=== PATIENT | female | born 1960 | race Caucasian/White ===

== ENCOUNTER 2016-12-22 05:38 | Inpatient (IN) | payer BC ==
[2016-12-22] VITALS (14 sets, daily range): BP systolic 100–134; BP diastolic 47–85
[~2016-12-22] VITALS: Ht 182.9 cm; Wt 128.8 kg
[~2016-12-22 05:38] MED LIST: LOSARTAN POTASS50 MG ORAL; METFORMIN HCL500 M1 ORAL; OMEPRAZOLE40 M1 ORAL
--- NOTE | 2016-12-22 07:00 | Anethesia Preoperative Eval ---
Anesthesia Pre-op PMH/ROS General Date of Evaluation: Dec 22, 2016 Anesthesiologist: Jamal ASA Score: ASA 2 Mallampati Score Class I : Soft palate, uvula, fauces, pillars visible Class II: Soft palate, uvula, fauces visible Class III: Soft palate, base of uvula visible Class IV: Only hard plate visible Mallampati Classification: Class II Surgeon: Awais Diagnosis: Left knee osteoarthritis Surgical Procedure: Left total knee replacement Anesthesia History: none Family History: no anesthesia problems Allergies: Coded Allergies: COCONUT (Verified Allergy, Mild, 12/21/16) RASH RHUBARB (Verified Allergy, Mild, 12/21/16) RASH STRAWBERRY (Verified Allergy, Mild, 12/21/16) RASH Uncoded Allergies: TREE NUTS (Allergy, Severe, 12/21/16) THROAT SWELLS UP EGGPLANT (Allergy, Mild, 12/21/16) RASH Medications: see eMAR Past Medical History Cardiovascular: Reports: HTN, Denies: CAD, [place], valve dz, arrhythmia, other Pulmonary: Denies: asthma, COPD, MEY, other Gastrointestinal/Genitourinary: Reports: GERD, Denies: CRI, ESRD, other Neurologic/Psychiatric: Denies: dementia, CVA, depression/anxiety, TIA, other Endocrine: Reports: DM, Denies: hypothyroidism, steroids, other HEENT: Denies: cataract (L), cataract (R), glaucoma, PASCUA YAQUI (L), PASCUA YAQUI (R), other Hematology/Immune: Denies: anemia, DVT, bleeding disorder, other Musculoskeletal/Integumentary: Reports: OA, other - chronic low back pain, Denies: RA, DJD, DDD, edema Other: obesity PSxH Narrative: fibroid embolization Anesthesia Pre-op Phys. Exam Physician Exam Last Vital Signs Date Time Temp Pulse Resp B/P (MAP) Pulse Ox O2 Delivery O2 Flow Rate FiO2 12/22/16 06:23 96.0 64 18 129/62 96 Room Air Constitutional: NAD Cardiovascular: RRR Respiratory: other - diminished breath sounds bilateerally Airway Exam Mallampati Score: Class II MO: limited Neck: obese ROM: limited Anesthesia Pre-op A/P Labs see chart Studies Pre-op Studies: EKG - sr Risk Assessment & Plan Assessment: ASA II Plan: SAB, and GA Status Change Before Surgery: No Pre-Antibiotics Drug: Ancef 2g Given Within 1 Hr of Incision: Yes Time Given: 08:00 ENRIQUE KELLY M.D. Dec 22, 2016 07:00
[2016-12-22] MEDS ORDERED: LR 1000ml 1,000 ML IVLG SCH (07:01)
[2016-12-22] MEDS ORDERED: DiphenhydrAMINE 50mg/ml Inj IVP PRN (07:15)
[2016-12-22] MEDS ORDERED: fentaNYL 100 mcg/2 mL IV PRN (07:15)
[2016-12-22] MEDS ORDERED: Midazolam 2mg/2ml Inj IVP PRN (07:15)
[2016-12-22] MEDS ORDERED: Metoclopramide 10mg/2ml Inj IVP PRN (07:15)
[2016-12-22] MEDS ORDERED: Hydromorphone 0.5mg/0.5ml inj IVP PRN (07:15)
[2016-12-22] MEDS ORDERED: LORazepam Inj 2mg/ml 1ml IV PRN (07:15)
[2016-12-22] MEDS ORDERED: Bacitracin 50000 Units Vial ONE (07:24)
[2016-12-22] MEDS ORDERED: NeoSporin Gu Irrig 1ml Amp IRRIG ONE (07:24)
[2016-12-22] MEDS ORDERED: Duramorph PF 5mg/10ml amp ONE (07:24)
[2016-12-22] MEDS ORDERED: D5 1/2NS w/KCl 20mEq 1,000 ML IV SCH (07:46)
--- NOTE | 2016-12-22 07:46 | Pre-Procedure Note/Attestation ---
Pre-Procedure Note/Attestation Complete Prior to Procedure Planned Procedure: left Procedure Narrative: left knee replacement Indications for Procedure Pre-Operative Diagnosis: left knee oa Attestation I attest that I discussed the nature of the procedure; its benefits; risks and complications; and alternatives (and the risks and benefits of such alternatives ), prior to the procedure, with the patient (or the patient's legal loss prevention representative). I attest that, if there was a reasonable possibility of needing a blood transfusion, the patient (or the patient's legal loss prevention representative) was given the [facility] standardized written summary, pursuant to the Rajiv Hood Blood Safety Act ([place] Health and Safety Code # 1645, as amended). I attest that I re-evaluated the patient just prior to the surgery and that there has been no change in the patient's H&P, except as documented below: HEMAL ABARCA Dec 22, 2016 07:46
[2016-12-22] MEDS ORDERED: Propofol 200mg/20ml IV ONE (08:00)
[2016-12-22] MEDS ORDERED: fentaNYL 100 mcg/2 mL IV ONE (08:00)
[2016-12-22] MEDS ORDERED: Lidocaine 1% MPF 10mg/ml 5ml ONE (08:00)
[2016-12-22] MEDS ORDERED: Metoclopramide 10mg/2ml Inj ONE (08:00)
[2016-12-22] MEDS ORDERED: Norco 7.5mg/325mg tab ORAL PRN (08:00)
[2016-12-22] MEDS ORDERED: LR 1000ml ONE (08:00)
[2016-12-22] MEDS ORDERED: HYDROmorphone 1mg/ml Carpuject SUBQ PRN ×2 (08:00→12:30)
[2016-12-22] MEDS ORDERED: Midazolam 2mg/2ml Inj ONE (08:00)
--- NOTE | 2016-12-22 08:14 | Immediate Post-Op Evaluation ---
Immediate Post-Op Evalulation Immediate Post-Op Evalulation Procedure: Left total knee arthroplasty Date of Evaluation: Dec 22, 2016 Time of Evaluation: 10:27 IV Fluids: 1.6L Blood Products: 0 Estimated Blood Loss: 150 Urinary Output: 300 Blood Pressure Systolic: 100 Blood Pressure Diastolic: 50 Pulse Rate: 75 Respiratory Rate: 16 O2 Sat by Pulse Oximetry: 95 Temperature (Fahrenheit): 97.2 Pain Score (1-10): 0 Nausea: No Vomiting: No Complications 0 Patient Status: awake, reacts, patent, none Hydration Status: adequate Drug: Ancef 2g Given Within 1 Hr of Incision: Yes Time Given: 08:00 ENRIQUE KELLY M.D. Dec 22, 2016 08:14
[2016-12-22] MEDS: Enoxaparin 40mg Inj SUBQ SCH (09:00)
[2016-12-22] MEDS ORDERED: Bacitracin Oint 15gm Tube TOPIC ONE (10:05)
--- NOTE | 2016-12-22 11:12 | Diagnostic Imaging Report ---
Indication: Pain Technique: 3 views of the left knee Comparison: None Findings:There is marked degenerative narrowing of the medial joint compartment. There are bilateral osteophytes. There is also narrowing of the patellofemoral joint compartment. No acute fractures. No dislocations Impression:Degenerative changes, as described No acute bony trauma
[2016-12-22 11:29] LABS: BASOPHILS % (AUTO) 0.6 % (0.0-2.0); LYMPHOCYTES % (AUTO) 15.1 % (20.0-45.0); MEAN CORPUSCULAR HGB CONC 33.2 G/DL (32.0-36.0); MEAN CORPUSCULAR VOLUME 96 FL (80-99); MEAN PLATELET VOLUME 7.5 FL (6.5-10.1); MONOCYTES % (AUTO) 1.7 % (1.0-10.0); NEUTROPHILS % (AUTO) 81.5 % (45.0-75.0); PLATELET COUNT 219 K/UL (150-450); RED BLOOD COUNT 4.08 M/UL (4.20-5.40); RED CELL DISTRIBUTION WIDTH 11.2 % (11.6-14.8); WHITE BLOOD COUNT 8.9 K/UL (4.8-10.8)
--- NOTE | 2016-12-22 12:03 | Diagnostic Imaging Report ---
Indications: Postoperative Technique: Two views of the left knee Comparison:None Findings: Two postoperative views of the left knee demonstrate total knee arthroplasty, good anatomic alignment of the prosthesis. . There is postsurgical soft tissue air. Overlying skin zandra. Impression: Postoperative left knee, no unusual features.
[2016-12-22] MEDS ORDERED: oxyCODONE 5mg IR tab ORAL PRN ×2 (12:45)
[2016-12-22] MEDS ORDERED: LORazepam 0.5mg tab ORAL PRN (13:45)
[2016-12-22] MEDS ORDERED: Milk of Magnesia 30ml Ud ORAL PRN (13:45)
[2016-12-22] MEDS: ceFAZolin sod 1 GM in D5W 55 ML IV SCH (15:46)
[2016-12-22] MEDS: 1/2NS w/KCl 20mEq 1000ml 1,000 ML IV SCH (15:46)
[2016-12-22] MEDS: HYDROmorphone 1mg/ml Carpuject SUBQ PRN ×2 (16:32→21:02)
[2016-12-22] MEDS: NovoLOG Insulin Flexpen SUBQ SCH ×2 (17:00→21:08)
[2016-12-22] MEDS: Docusate 100mg/10ml Liq NG SCH (17:35)
--- NOTE | 2016-12-22 20:46 | Cardiology Progress Note ---
Assessment/Plan Assessment/Plan [id number] dm htn obesity s/p tkr abn cxr diabetic diet and med dvt ppx ambualte when allowed will need fu on her cxr abn possible as out pt with her pmd Objective Last 24 Hour Vital Signs Date Time Temp Pulse Resp B/P (MAP) Pulse Ox O2 Delivery O2 Flow Rate FiO2 12/22/16 17:02 98.1 12/22/16 16:00 97.7 80 19 134/59 99 Nasal Cannula 3.0 12/22/16 13:30 98.1 83 18 112/74 99 Nasal Cannula 3.0 12/22/16 13:00 98.5 92 18 127/85 99 Nasal Cannula 3.0 12/22/16 12:30 98.3 84 19 130/74 96 Nasal Cannula 3.0 12/22/16 12:00 98.5 66 19 123/68 98 Nasal Cannula 3.0 12/22/16 11:30 98.6 68 20 119/61 95 Nasal Cannula 3.0 12/22/16 11:14 98.6 65 20 123/62 95 Nasal Cannula 3.0 12/22/16 11:05 71 20 115/56 95 Nasal Cannula 3.0 12/22/16 10:45 72 20 123/47 95 Nasal Cannula 3.0 12/22/16 10:32 72 20 111/48 95 Nasal Cannula 3.0 12/22/16 10:27 74 20 101/48 95 Simple Mask 5.0 12/22/16 10:25 75 16 95 12/22/16 10:22 97.2 74 20 100/50 95 Simple Mask 5.0 12/22/16 06:23 96.0 64 18 129/62 96 Room Air Intake and Output 12/22/16 12/23/16 19:00 07:00 Intake Total 3932.5 ml Output Total 3475 ml 800 ml Balance 457.5 ml -800 ml Intake Oral 1740 ml IV Total 2192.5 ml Output Urine Total 2975 ml 800 ml Drainage Total 350 ml Estimated Blood Loss 150 ml # Voids 1 Laboratory Tests Test 12/22/16 11:00 White Blood Count 8.9 K/UL (4.8-10.8) Red Blood Count 4.08 M/UL (4.20-5.40) L Hemoglobin 13.0 G/DL (12.0-16.0) Hematocrit 39.2 % (37.0-47.0) Mean Corpuscular Volume 96 FL (80-99) Mean Corpuscular Hemoglobin 32.0 PG (27.0-31.0) H Mean Corpuscular Hemoglobin Concent 33.2 G/DL (32.0-36.0) Red Cell Distribution Width 11.2 % (11.6-14.8) L Platelet Count 219 K/UL (150-450) Mean Platelet Volume 7.5 FL (6.5-10.1) Neutrophils (%) (Auto) 81.5 % (45.0-75.0) H Lymphocytes (%) (Auto) 15.1 % (20.0-45.0) L Monocytes (%) (Auto) 1.7 % (1.0-10.0) Eosinophils (%) (Auto) 1.0 % (0.0-3.0) Basophils (%) (Auto) 0.6 % (0.0-2.0) Prothrombin Time 10.0 SEC (9.30-11.50) Prothromb Time International Ratio 1.0 (0.9-1.1) SAMIR TONY Dec 22, 2016 20:46
--- NOTE | 2016-12-22 23:30 | Consultation ---
DATE OF CONSULTATION: 12/22/2016 CONSULTING PHYSICIAN: Valente Kramer M.D. REFERRING PHYSICIAN: Demetrius Ernandez M.D. REASON FOR CONSULTATION: Acute pain consult. HISTORY OF PRESENT ILLNESS: Dear Dr. Ernandez, Thank you kindly for consulting me to evaluate and render an opinion as to how to proceed in the management of the patient's acute postoperative left knee pain status post left total knee arthroplasty. The patient is a very pleasant, morbidly obese woman, who complained of significant discomfort after her left knee replacement surgery today. On request, I saw the patient for acute pain consultation. I saw the patient at bedside. I performed a detailed history and physical examination. I reviewed the medical record in detail. I discussed the case with yourself, Dr. Ernandez, along with the nurse, KURTIS Elam, along with the hospital pharmacist, Guerita. I spent over 75 minutes in consultation with an additional 30 minutes in medical record review. PAST MEDICAL HISTORY: 1. Acute postoperative left knee pain status post left total knee arthroplasty by Dr. Ernandez in December 2016. 2. Morbid obesity. 3. Diabetes. 4. Hypertension. 5. Gastroesophageal reflux disease. PAST SURGICAL HISTORY: In September 2016, right knee arthroscopy. MEDICATIONS AT HOME: Metformin, Prilosec, and losartan. ALLERGIES: Multiple food allergies. No known drug allergies. SOCIAL HISTORY: The patient lives at home with children, who will be able to assist with activities of daily living when the patient is discharged. The patient denies tobacco or marijuana usage. She does drink alcohol socially. FAMILY HISTORY: Noncontributory. REVIEW OF SYSTEMS: Per attending physician. PHYSICAL EXAMINATION: VITAL SIGNS: Age 55, height 182 cm, weight 129 kg, and body mass index 39. NEUROLOGIC: Alert and oriented x3. Moving all extremities x4. Moving all toes x10. Significant pain with flexion and extension of the left knee. Dressing appears clean and dry with Hemovac drain holding suction. HEENT: Nasal canal oxygen in place. Extraocular muscles intact. Pupils are equal, round, and accommodative. CHEST: Barrel chested. Bibasilar crackles. postop atelectasis. HEART: Regular rate and rhythm. Positive S4. Normal S1 and S2. No S3 appreciated. ABDOMEN: Positive obesity. Positive pannus. No rebound. No guarding. Veliz catheter in place. GENITOURINARY: Deferred. BREASTS: Deferred. DIAGNOSTIC TESTING: Shows a 12-lead EKG with left axis deviation, normal sinus rhythm, ventricular rate 81. Preoperative chest x-ray shows no acute cardiopulmonary disease on 12/09/2016. LABORATORY DATA: Laboratory studies from 12/14/2016 shows glucose 154, BUN 11, creatinine 0.6, sodium 142, potassium 4.3, chloride 100, bicarbonate 26, and calcium 10. Total protein 7.6. Albumin 4.6. AST 32, ALT 50, and alkaline phosphatase 84. Total bilirubin 0.8. test negative. INR 0.9. Urinalysis, 3+ leukocyte esterase, glucose negative. White count 7, hematocrit 42, and platelets 226. IMPRESSION: 1. Acute postoperative left knee pain status post left total knee arthroplasty by Dr. Ernandez in December 2016. 2. Morbid obesity. 3. Diabetes. 4. Hypertension. 5. Gastroesophageal reflux disease. TREATMENT RECOMMENDATIONS: I have devised the following analgesic plan to help with the patient's pain control. The patient used hydrocodone after her September 2015 right knee arthroscopy surgery. She did not believe that the [place] had much analgesic effect. She did not have any adverse side effects. I therefore will trial her on oxycodone instant release. I have ordered 5 mg q.3 hours p.r.n. for mild pain and 10 mg orally every three hours for moderate pain. The patient cannot recall her experience with narcotics such as morphine or Dilaudid. I therefore selected a starting dose of Dilaudid 0.5 mg subcutaneously every 3 hours p.r.n. for severe pain. I added p.r.n. low dose of Ativan 0.5 mg in case of anxiety or insomnia. I added Fioricet tablets 1 tablet orally every 8 hours in case of any headache complaints. I will restart the patient's blood pressure medicine tomorrow morning with a hold parameter in case her systolic blood pressure is less than 130 mmHg. I have added p.r.n. dose of Catapres 0.1 mg orally every 8 hours p.r.n. for high blood pressure. Because the patient is diabetic, I placed her on a low-dose sliding scale insulin with a diabetic diet and intravenous fluids without any dextrose. Restart her metformin tomorrow morning with protocol Accu-Cheks to test her blood sugar. I will empirically place the patient on Protonix 40 mg nightly for GI ulcer prophylaxis. She does probably use Prilosec for GERD. I have also added p.r.n. dose of Mylanta 30 mL q.6 hours p.r.n. for any GERD symptom exacerbation. I have ordered Zofran 4 mg intravenous every four hours for her nausea. I have ordered Benadryl 20 mg orally q.6 h. in case of itching complaints. I will place her on Colace as a stool softener and add p.r.n. dose of milk of magnesia, as well as Dulcolax suppository as a rescue laxative. Dr. Ernandez has ordered Lovenox to start tomorrow for DVT prophylaxis. This is an obese woman, who is at significant risk for deep venous thrombosis and pulmonary embolism complication due to the nature of her surgery and her obesity. I have ordered incentive spirometer to encourage good pulmonary toilet. Valente Kramer M.D. DR: NIC JOB#: [id number] CC:
[2016-12-23] VITALS: BP 127/68
[2016-12-23] MEDS: HYDROmorphone 1mg/ml Carpuject SUBQ PRN ×5 (00:04→19:01)
[2016-12-23] MEDS: ceFAZolin sod 1 GM in D5W 55 ML IV SCH (00:04)
[2016-12-23] MEDS: 1/2NS w/KCl 20mEq 1000ml 1,000 ML IV SCH ×2 (03:57→17:18)
[2016-12-23 04:00] VITALS: BP 123/72
--- NOTE | 2016-12-23 06:16 | Consultation ---
DATE OF CONSULTATION: 12/22/2016 CARDIOLOGY CONSULTATION CONSULTING PHYSICIAN: Tylor Cervantes M.D. REFERRING PHYSICIAN: Demetrius Ernandez M.D. REASON FOR EVALUATION: Postoperative medical care. HISTORY OF PRESENT ILLNESS: This is a middle-aged female, who has a history of an accident several years ago and related to her knee has had several meniscal repair surgeries and finally underwent total knee replacement by Dr. Schmitt today. I am asked to see her in medical consultation. The patient does not have any chest pain or shortness of breath. There is no PND, no orthopnea. No palpitations and no dizziness on standing position. PAST MEDICAL HISTORY: Positive for diabetes and high blood pressure. She has been on diabetic medication for approximately one year. She denies all the other medical questions on questioning. ALLERGIES: She has no known drug allergies. SOCIAL HISTORY: She does not smoke. Socially, drinks alcoholic beverages. Denies any drug use. She is an contract accountant. REVIEW OF SYSTEMS: GASTROINTESTINAL: She did not have any nausea or vomiting. bowel movements. GENITOURINARY: Negative. PULMONARY: She thought she choked on one of the pills that she had today. NEUROLOGICAL: Numbness and tingling sensation in her right fingers. PHYSICAL EXAMINATION: GENERAL: Shows to be a middle-aged female, in no respiratory distress. She is overweight. NECK: Supple. No jugular venous distention. No abdominojugular reflux noted. LUNGS: Clear to auscultation and percussion. CARDIAC: S1 is normal. S2 is normal. Regular rate and rhythm. No heaves, thrills, or gallops noted. ABDOMEN: Soft, obese. Positive bowel sounds. EXTREMITIES: There is no edema. Pneumatic stockings in place, and she has a drain in place. LABORATORY AND DIAGNOSTIC DATA: Laboratory values not available postop. Preop EKG shows leftward axis, no significant ST or T-wave abnormalities on this EKG. Chest x-ray was done that shows fullness in the left hilum, which may be vascular, however, not excluded. Would suggest a CT scan with contrast for further assessment, was recommended this to be done with primary care physician as an outpatient. Her laboratories, her blood sugar was 154. Liver function tests are all normal. Her HCG was negative. INR was 0.9, PTT of 28. Urinalysis was fairly unremarkable, although she did have 25 to 50 WBCs. Her white count was 7, hemoglobin 14.4, and platelet count of 226,000, these are all preop laboratories that were done by the primary care physician before she was referred for surgery. ASSESSMENT: 1. Diabetes mellitus. 2. Hypertension history. 3. Obesity. 4. Status post total knee replacement. PLAN: Dr. Schmitt, the patient was seen in medical consultation. The patient is doing well. She will need to be on a diabetic diet. Her diabetic medication will be resumed. Her blood pressure medication will be resumed, withhold parameters. She would need to follow up with her primary care doctor in terms of her CT scan possibly in the future. She will have Accu-Cheks performed, insulin sliding scale. Deep venous thrombosis prophylaxis with the use of Lovenox has already been ordered by yourself. Ambulation as allowed by yourself. I will follow the patient with you. Tylor Cervantes M.D. DR: KEARA JOB#: [id number] CC:
[2016-12-23] MEDS: NovoLOG Insulin Flexpen SUBQ SCH ×4 (06:27→21:09)
[2016-12-23 07:04] LABS: PROTHROMBIN TIME 10.1 SEC (9.30-11.50)
[2016-12-23 07:11] LABS: BASOPHILS % (AUTO) 0.5 % (0.0-2.0); EOSINOPHILS % (AUTO) 0.4 % (0.0-3.0); LYMPHOCYTES % (AUTO) 21.1 % (20.0-45.0); MEAN CORPUSCULAR HEMOGLOBIN 33.6 PG (27.0-31.0); MEAN CORPUSCULAR HGB CONC 35.3 G/DL (32.0-36.0); MEAN CORPUSCULAR VOLUME 95 FL (80-99); MEAN PLATELET VOLUME 8.1 FL (6.5-10.1); MONOCYTES % (AUTO) 8.6 % (1.0-10.0); NEUTROPHILS % (AUTO) 69.4 % (45.0-75.0); PLATELET COUNT 210 K/UL (150-450); RED BLOOD COUNT 3.75 M/UL (4.20-5.40); RED CELL DISTRIBUTION WIDTH 10.9 % (11.6-14.8); WHITE BLOOD COUNT 11.5 K/UL (4.8-10.8)
[2016-12-23 08:00] VITALS: BP 125/75
[2016-12-23] MEDS ORDERED: HYDROmorphone 1mg/ml Carpuject SUBQ ONE (08:35)
[2016-12-23] MEDS: Docusate 100mg/10ml Liq NG SCH ×2 (08:37→17:16)
[2016-12-23] MEDS: Enoxaparin 40mg Inj SUBQ SCH (08:43)
[2016-12-23] MEDS ORDERED: oxyCODONE 5mg IR tab ORAL PRN (08:45)
[2016-12-23] MEDS ORDERED: Losartan 50mg tab ORAL SCH ×2 (09:00→21:00)
[2016-12-23] MEDS ORDERED: metFORMIN 500mg tab ORAL SCH (09:00)
--- NOTE | 2016-12-23 10:20 | 48 Hour Post Anesthesia Eval ---
Post Anesthesia Evaluation Procedure: Left total knee arthroplasty Date of Evaluation: Dec 23, 2016 Time of Evaluation: 10:18 Blood Pressure Systolic: 124 0: 62 Pulse Rate: 74 Respiratory Rate: 20 Temperature (Fahrenheit): 97.9 O2 Sat by Pulse Oximetry: 97 Airway: patent Nausea: No Vomiting: No Pain Intensity: 3 Hydration Status: adequate Cardiopulmonary Status: stable Mental Status/LOC: patient returned to baseline Follow-up Care/Observations: n/a Post-Anesthesia Complications: none Follow-up care needed: N/A CAROLE GONGORA M.D. Dec 23, 2016 10:20
[2016-12-23] MEDS: oxyCODONE 15mg IR tab ORAL PRN ×3 (11:42→21:04)
[2016-12-23 12:00] VITALS: BP 149/81
--- NOTE | 2016-12-23 15:01 | Progress Note ---
DATE: 12/23/2016 ACUTE PAIN MANAGEMENT PHYSICIAN PROGRESS NOTE MEDICATIONS: Medication administration record reviewed. Medications include Fioricet, Mylanta, Dulcolax, Catapres, Benadryl, Colace, Lovenox, Dilaudid, sliding-scale insulin, Ativan, Cozaar, milk of magnesia, Glucophage, Zofran, oxycodone, Protonix, Phenergan suppository. OBJECTIVE: VITAL SIGNS: Afebrile, pulse 70, respirations 18, blood pressure 123/72, and oxygen saturation 92% on room air. LABORATORY STUDIES: From this morning, December 23, 2016, white count 12, hematocrit 36, and platelets 210,000. INR 1.0. I saw the patient at the bedside. After discussion with the nurse, Marialuisa Dexter, I spoke with the surgeon, Dr. Ernandez, in detail. Overnight, the night nurse stated that the patient had been doing fairly well, receiving subcutaneous Dilaudid nearly every three hours. When I saw the patient this morning, the patient disagreed and said that she was in significant discomfort. She did ask for more pain medications without receipt of such. I increased her Dilaudid dosing from 0.5 to 1 mg subcutaneously. I will continue this q.2 hours dosing. I have asked the nurse to give a breakthrough catch-up dose now. I have also increased the oxycodone from 5 to 10 mg for mild to moderate pain respectively to 10 and 15 mg for mild or moderate pain respectively. The patient does not appear to be anxious. She is in good spirits. She understands this is a significant surgery and she is expected to be uncomfortable. I spoke with the physical therapist who will try to walk with the patient later today. The gearcase assembler has been contacted to help arrange for home Lovenox. Treatment along with CPM at home and any other necessity such as a 4-legged walker. I have asked the nurse to leave a bedside commode in the room in case the patient has difficulty moving around. The Veliz catheter remains in place. The knee drain remains in place as well. At this time, I will defer removal of these indwelling catheters to the surgeon. Dr. Crevantes evaluated the patient yesterday for her glucose and hypertensive issues. The nurse will start the patient on Lovenox this morning. The patient will observe to hopefully be able to self-inject Lovenox tomorrow. I will leave the prescription for 2 weeks of Lovenox for outpatient therapy. The patient denies any shortness of breath or chest pain. The patient has no nausea symptoms. I will advance her diet to a diabetic diet as tolerated. Valente Kramer M.D. DR: DANNY JOB#: [id number] CC:
[2016-12-23 16:00] VITALS: BP 142/77
--- NOTE | 2016-12-23 18:35 | Cardiology Progress Note ---
Assessment/Plan Assessment/Plan 1. Diabetes mellitus. 2. Hypertension history. 3. Obesity. 4. Status post total knee replacement. 5. hx of valley fever i have explained to the pt and she indicated understanding that she needs to fu with pmd to evaluate the abn noted on her cxr with ct adn other test bs 133-170 off her cozaar still will resume tomorrow and if not orthostatic will dc ivf hgb stable dvt ppx pain management ambulate Subjective Cardiovascular: Reports: lightheadedness - when got up firs titme to walk, Denies: chest pain Respiratory: Denies: shortness of breath Gastrointestinal/Abdominal: Denies: abdominal pain Genitourinary: Denies: burning Objective Last 24 Hour Vital Signs Date Time Temp Pulse Resp B/P (MAP) Pulse Ox O2 Delivery O2 Flow Rate FiO2 12/23/16 16:00 98.1 94 19 142/77 95 Room Air 12/23/16 14:24 97.5 12/23/16 12:00 97.5 85 19 149/81 95 Room Air 12/23/16 10:20 74 20 97 12/23/16 09:07 98.6 12/23/16 08:00 99.2 78 17 125/75 98 Room Air 12/23/16 07:22 98.6 12/23/16 04:00 98.6 70 18 123/72 93 Room Air 12/23/16 00:00 98.8 74 18 127/68 93 Room Air 12/22/16 20:00 98.2 84 18 130/76 93 Nasal Cannula 3.0 General Appearance: no apparent distress, alert Neck: no JVD Cardiovascular: normal rate, regular rhythm Respiratory/Chest: lungs clear, normal breath sounds Abdomen: normal bowel sounds, non tender, soft Extremities: no swelling, other - pnemaumoatkic stockin in palce right leg , left cpm machien dressign Intake and Output 12/23/16 12/24/16 19:00 07:00 Intake Total 1562.5 ml Output Total 2460 ml Balance -897.5 ml Intake Oral 700 ml IV Total 862.5 ml Output Urine Total 2350 ml Drainage Total 110 ml Laboratory Tests Test 12/23/16 04:45 White Blood Count 11.5 K/UL (4.8-10.8) H Red Blood Count 3.75 M/UL (4.20-5.40) L Hemoglobin 12.6 G/DL (12.0-16.0) Hematocrit 35.7 % (37.0-47.0) L Mean Corpuscular Volume 95 FL (80-99) Mean Corpuscular Hemoglobin 33.6 PG (27.0-31.0) H Mean Corpuscular Hemoglobin Concent 35.3 G/DL (32.0-36.0) Red Cell Distribution Width 10.9 % (11.6-14.8) L Platelet Count 210 K/UL (150-450) Mean Platelet Volume 8.1 FL (6.5-10.1) Neutrophils (%) (Auto) 69.4 % (45.0-75.0) Lymphocytes (%) (Auto) 21.1 % (20.0-45.0) Monocytes (%) (Auto) 8.6 % (1.0-10.0) Eosinophils (%) (Auto) 0.4 % (0.0-3.0) Basophils (%) (Auto) 0.5 % (0.0-2.0) Prothrombin Time 10.1 SEC (9.30-11.50) Prothromb Time International Ratio 1.0 (0.9-1.1) SAMIR TONY Dec 23, 2016 18:35
[2016-12-23 20:46] VITALS: BP 150/78
[2016-12-23] MEDS: metFORMIN 500mg tab ORAL SCH (21:03)
--- NOTE | 2016-12-23 21:51 | General Progress Note ---
Progress Note Progress Note doing well neurovasc intact ambulating VSS cont rx HEMAL ABARCA Dec 23, 2016 21:51
[2016-12-23] MEDS ORDERED: Ketorolac 30mg Inj IV ONE (23:00)
[2016-12-24] VITALS (7 sets, daily range): BP systolic 116–126; BP diastolic 57–80
[2016-12-24] MEDS: HYDROmorphone 1mg/ml Carpuject SUBQ PRN (06:17)
[2016-12-24] MEDS: 1/2NS w/KCl 20mEq 1000ml 1,000 ML IV SCH (06:17)
[2016-12-24] MEDS: NovoLOG Insulin Flexpen SUBQ SCH ×4 (06:25→21:00)
[2016-12-24 07:56] LABS: BASOPHILS % (AUTO) 0.8 % (0.0-2.0); EOSINOPHILS % (AUTO) 1.1 % (0.0-3.0); LYMPHOCYTES % (AUTO) 21.5 % (20.0-45.0); MEAN CORPUSCULAR HGB CONC 35.2 G/DL (32.0-36.0); MEAN CORPUSCULAR VOLUME 94 FL (80-99); MEAN PLATELET VOLUME 7.6 FL (6.5-10.1); MONOCYTES % (AUTO) 11.1 % (1.0-10.0); NEUTROPHILS % (AUTO) 65.5 % (45.0-75.0); PLATELET COUNT 180 K/UL (150-450); RED BLOOD COUNT 3.48 M/UL (4.20-5.40); RED CELL DISTRIBUTION WIDTH 10.7 % (11.6-14.8); WHITE BLOOD COUNT 9.6 K/UL (4.8-10.8)
[2016-12-24 08:10] LABS: PROTHROMBIN TIME 10.2 SEC (9.30-11.50)
[2016-12-24] MEDS: Docusate 100mg/10ml Liq NG SCH ×3 (08:32→17:42)
[2016-12-24] MEDS: Enoxaparin 40mg Inj SUBQ SCH (08:36)
[2016-12-24] MEDS: oxyCODONE 15mg IR tab ORAL PRN ×4 (09:00→21:15)
[2016-12-24] MEDS ORDERED: PERCOCET 10-321 EACH ORAL ×2 (10:51→10:53)
[2016-12-24] MEDS ORDERED: LOVENOX10 M4 SUBQ (10:54)
[2016-12-24] MEDS ORDERED: NS Irrig 1000ml ONE (17:59)
[2016-12-24] MEDS ORDERED: Tubing IV Secondary IV ONE (17:59)
--- NOTE | 2016-12-24 18:09 | Cardiology Progress Note ---
Assessment/Plan Assessment/Plan 1. Diabetes mellitus. 2. Hypertension history. 3. Obesity. 4. Status post total knee replacement. 5. hx of valley fever cristino i have explained to the pt and she indicated understanding that she needs to fu with pmd to evaluate the abn noted on her cxr with ct adn other test bs 127-178 hgb stable dvt ppx pain management ze keep holding bp med going home soon ambulate Subjective Cardiovascular: Denies: chest pain, lightheadedness, palpitations Respiratory: Denies: SOB with excertion Gastrointestinal/Abdominal: Denies: abdominal pain Genitourinary: Denies: burning Objective Last 24 Hour Vital Signs Date Time Temp Pulse Resp B/P (MAP) Pulse Ox O2 Delivery O2 Flow Rate FiO2 12/24/16 16:00 98.4 101 20 116/76 98 Room Air 12/24/16 12:00 98.0 89 20 118/67 98 Room Air 12/24/16 09:23 100 98 125 12/24/16 08:00 98.6 100 20 122/57 92 Room Air 12/24/16 06:47 99.0 12/24/16 04:55 99.0 92 19 123/65 93 Room Air 12/24/16 00:29 98.6 105 19 116/80 93 Room Air 12/23/16 23:04 100.2 12/23/16 21:03 150/78 12/23/16 20:46 100.2 111 20 150/78 94 Room Air General Appearance: no apparent distress, alert Neck: supple Cardiovascular: normal peripheral pulses, normal rate Respiratory/Chest: lungs clear Abdomen: normal bowel sounds, non tender, soft Extremities: no swelling Intake and Output 12/24/16 12/25/16 19:00 07:00 Intake Total 315 ml Output Total 1100 ml Balance -785 ml Intake Oral 240 ml IV Total 75 ml Output Urine Total 1100 ml # Voids 3 # Bowel Movements 1 Laboratory Tests Test 12/24/16 06:39 White Blood Count 9.6 K/UL (4.8-10.8) Red Blood Count 3.48 M/UL (4.20-5.40) L Hemoglobin 11.5 G/DL (12.0-16.0) L Hematocrit 32.5 % (37.0-47.0) L Mean Corpuscular Volume 94 FL (80-99) Mean Corpuscular Hemoglobin 33.0 PG (27.0-31.0) H Mean Corpuscular Hemoglobin Concent 35.2 G/DL (32.0-36.0) Red Cell Distribution Width 10.7 % (11.6-14.8) L Platelet Count 180 K/UL (150-450) Mean Platelet Volume 7.6 FL (6.5-10.1) Neutrophils (%) (Auto) 65.5 % (45.0-75.0) Lymphocytes (%) (Auto) 21.5 % (20.0-45.0) Monocytes (%) (Auto) 11.1 % (1.0-10.0) H Eosinophils (%) (Auto) 1.1 % (0.0-3.0) Basophils (%) (Auto) 0.8 % (0.0-2.0) Prothrombin Time 10.2 SEC (9.30-11.50) Prothromb Time International Ratio 1.0 (0.9-1.1) Microbiology Date/Time Source Procedure Growth Status 12/22/16 06:00 Nasal Nares MRSA Culture - Final NO METHICILLIN RESISTANT STAPH AUREUS... Complete SAMIR TONY Dec 24, 2016 18:09
[2016-12-24] MEDS ORDERED: LOSARTAN POTASS50 MG ORAL (18:30)
--- NOTE | 2016-12-24 19:46 | Progress Note ---
DATE: 12/24/2016 ACUTE PAIN MANAGEMENT PHYSICIAN PROGRESS NOTE MEDICATIONS: Medication administration record reviewed. Medications include Colace, Protonix, Cozaar, Glucophage, Lovenox, sliding-scale insulin, and p.r.n. medications include Benadryl, Zofran, Fioricet, Ativan, Catapres, Mylanta, Phenergan, milk of magnesia, Dulcolax, Dilaudid, and oxycodone. LABORATORY STUDIES: From this morning, 12/24/2016 shows normalized white count of 10, hematocrit 33, and platelets 180. INR is 1.0. OBJECTIVE: VITAL SIGNS: Afebrile, pulse 92, respirations 20, blood pressure 122/57, and oxygen saturation on room air. I saw the patient at the bedside after discussion with the overnight nurse RN, Robyn and today's day nurse RN, Marialuisa. The surgeon, Dr. Ernandez examined the patient yesterday evening and removed the left knee drain. Dr. Ernandez also dosed the patient with 30 mg of IV Toradol, which the patient stated had very good effect. Because the patient is already on Lovenox, I recommended the patient not to continue NSAIDs such as ibuprofen, unless Dr. Ernandez approves; although, there is a theoretical risk for increased bleeding of using NSAIDs especially when already on Lovenox. I left the prescription for 75 tablets of Percocet and the nurse, Marialuisa will contact the outpatient pharmacy at the hospital to see if they can fill the prescription. Otherwise the patient's children may travel-in from [facility] to drop-off the prescription at another outpatient pharmacy for easy dispensing. The patient has been ambulating. The Veliz catheter was removed this morning; however, the patient is yet to void urine. The patient has been compliant using her incentive spirometer. The patient is complaining of bland diet. I did explain the patient that she has been placed on a diabetic diet due to her diabetes. Dr. Cervantes has been following the patient's mildly elevated blood sugars. The patient continues on sequential compression pneumatic devices on the right lower extremity for DVT prophylaxis in addition to chemical anticoagulation using Lovenox 40 mg daily. We will see how the patient progresses. We will continue to have physical therapy training to determine the discharge planning. I will continue the current p.r.n. doses of Dilaudid and oxycodone as the dose seem to be effective without oversedation. Valente Kramer M.D. DR: RIGOBERTO JOB#: [id number] CC:
[2016-12-24] MEDS ORDERED: Ketorolac 30mg Inj IV ONE (21:00)
[2016-12-24] MEDS: metFORMIN 500mg tab ORAL SCH (21:14)
[2016-12-26] MEDS ORDERED: Losartan 50mg tab ORAL SCH (21:00)
--- NOTE | 2016-12-27 12:44 | Discharge Summary ---
Discharge Summary Hospital Course Date of Admission Dec 22, 2016 at 05:38 Date of Discharge Dec 24, 2016 at 23:36 Admitting Diagnosis left knee osteoarthritis Reason for Hospitalization: elective surgery HPI Kaley Wolff is a 55 year old female who was admitted on Dec 22, 2016 at 05: 38 for Lt Knee Osteoarthritis and elective surgery Consultations dr Kramer - pain specialist dr Cervantes - IN/demo event specialist Procedures s/p 12/22 Left total knee arthroplasty Hospital Course s/p surgery course of recovery uneventful initially IVF until tolerated diet neurovascular inatct pain management pain specialist followed PT eval and Rx, ambulated dressing C/D/I tolerated diet voided freely bowel regimen instituted DVT GI prophylaxis BS management with metformin and SS of insulin prn, diabetic diet BP monitoring, stable with ARB IM/cardio followed for medical management cleared for dc by all fup as outpatient with ortho surgeon as directed by surgeon FINAL DIAGNOSES: left knee osteoarthritis s/p left total knee arthroplasty DM HTN obesity Discharge Medications Continued Medications: Enoxaparin* (Lovenox*) 40 Mg/0.4 Ml Inj 40 MG SUBQ DAILY for 14 Days, #14 Losartan Potassium* (Losartan Potassium*) 50 Mg Tablet 50 MG ORAL DAILY, TAB Metformin Hcl* (Metformin Hcl*) 500 Mg Tablet 500 MG ORAL DA, TAB Omeprazole (Omeprazole) 40 Mg Capsule.dr 40 MG ORAL DAILY, CAP Oxycodone Hcl/Acetaminophen 10-325 Mg Tablet (Percocet 10-325 Mg Tablet*) 1 Each Tablet 1 TAB ORAL Q4H PRN for For Pain, #75 TAB Oxycodone Hcl/Acetaminophen 10-325 Mg Tablet (Percocet 10-325 Mg Tablet*) 1 Each Tablet 1.5 TAB ORAL Q4H PRN for For Pain, #75 TAB Discontinued Medications: Losartan Potassium* (Losartan Potassium*) 50 Mg Tablet 50 MG ORAL DAILY, TAB Discharge Condition Upon Discharge: stable Discharge Disposition Patient was discharged to Home () Discharge Diagnoses: Discharge Instructions Discharge Instructions Special Instructions I have been assigned to complete a D/C Summary on this account. I was not involved in the patient management Keren Dickey NP (Vanchtein) Dec 27, 2016 12:44
--- NOTE | 2017-01-03 07:45 | Operative Note - Dictated ---
DATE OF OPERATION: 12/22/2016 LOCATION: [facility]. PREOPERATIVE DIAGNOSIS: Left knee end-stage osteoarthritis. POSTOPERATIVE DIAGNOSIS: Left knee end-stage osteoarthritis. PROCEDURES: 1. Left knee replacement. 2. Modifier 22 secondary to difficulty due to size. SURGEON: Demetrius Ernandez M.D. SPORTS INFORMATION DIRECTOR: Unknown. FRIED CAKE MAKER: Christopher Hennessy M.D. PREOPERATIVE NOTE: The patient is a pleasant lady, who has been having issues with knee associated with pain. I explained to her the surgery and the risks being infection, bleeding, anesthetic risks, neurovascular damage, DVT, PE, and failure of the operation. The patient agreed and consents were obtained. OPERATIVE ROOM NOTE: Under the benefit of endotracheal intubation and general anesthetic, the patient's left knee was prepped and draped in an appropriate manner. A midline incision was made and incised through subcutaneous tissue. The patient was given a gram of Ancef. We went through medial retinaculum. Osteophytes were removed. I then proceeded to size the femur to be #10 with the Jessica Persona knee plate, making my anterior cuts, posterior cuts, anterior chamfer and posterior chamfer cuts. #10 was deemed to be perfect. I then proceeded to size the tibia and the ACL to be enough making my cut with a built-in 7-degree slope with respect to mechanical access. The synovium was removed. I then made my patellar cut. There was significant erosion in the patella, for which a 29 was sized . I then placed my trials in. The 14 mm poly was deemed to be perfect with a #10 femur and knee plate. After doing such, no was used. I irrigated the wound copiously. I then cemented in my left tibia, my 10 femur, my 14 mm poly, and my 29 mm patella with perfect alignment, perfect selection, perfect , full extension, full flexion, full stability with all ranges of motion. We closed the retinaculum with #1 Vicryl, subcutaneous tissue with 2-0 Vicryl, and skin with zandra. Modifier 22 secondary to size. The patient went to recovery room in stable condition. Bal Winston Ernandez DR: Lan JOB#: [id number] CC:
== END 2016-12-24 23:36 | disposition home or self-care (01) | DRG 470 ==
LOC: SDSOVERFLO 05:38 → 3E 11:22
PROC: 0SRD0J9 Replacement of Left Knee Joint with Synthetic Substitute, Cemented, Open Approach (ICD-10-PCS; principal; 2016-12-22 07:30)
DX: M17.12 Unilateral primary osteoarthritis, left knee (principal); I10 Essential (primary) hypertension; E11.9 Type 2 diabetes mellitus without complications; E66.9 Obesity, unspecified; K21.9 Gastro-esophageal reflux disease without esophagitis; G89.18 Other acute postprocedural pain; Z79.84 Long term (current) use of oral hypoglycemic drugs; Z91.018 Allergy to other foods
CPT/HCPCS: 36415; 82962; 85025; 85610; 86850; 86900; 86901; 86920; 87081; 94003; 94150; J1815; J2250; J2405; J2765

== ENCOUNTER 2018-12-20 10:30 | Inpatient (IN) | payer BC ==
[~2018-12-20] VITALS: Ht 177.8 cm; Wt 123.4 kg
[~2018-12-20 10:30] MED LIST changes: +LOVENOX10 M4 SUBQ; +PERCOCET 10-321 EACH ORAL
[2019-01-17] VITALS (14 sets, daily range): BP systolic 101–139; BP diastolic 53–74
[2019-01-17] MEDS ORDERED: Bacitracin 50000 Units Vial ONE ×2 (08:06→08:27)
[2019-01-17] MEDS ORDERED: LR 1000ml 1,000 ML IVLG SCH (08:23)
[2019-01-17 08:27] LABS: BASOPHILS % (AUTO) 1.2 % (0.0-2.0); EOSINOPHILS % (AUTO) 3.9 % (0.0-3.0); HEMATOCRIT 41.2 % (37.0-47.0); HEMOGLOBIN 14.9 G/DL (12.0-16.0); LYMPHOCYTES % (AUTO) 33.5 % (20.0-45.0); MEAN CORPUSCULAR VOLUME 87 FL (80-99); MONOCYTES % (AUTO) 7.7 % (1.0-10.0); NEUTROPHILS % (AUTO) 53.7 % (45.0-75.0); PLATELET COUNT 206 K/UL (150-450); RED BLOOD COUNT 4.73 M/UL (4.20-5.40); RED CELL DISTRIBUTION WIDTH 9.9 % (11.6-14.8); WHITE BLOOD COUNT 6.2 K/UL (4.8-10.8)
--- NOTE | 2019-01-17 08:29 | Anethesia Preoperative Eval ---
Anesthesia Pre-op PMH/ROS General Date of Evaluation: Jan 17, 2019 Time of Evaluation: 08:36 Anesthesiologist: Dalton ASA Score: ASA 3 Mallampati Score Class I : Soft palate, uvula, fauces, pillars visible Class II: Soft palate, uvula, fauces visible Class III: Soft palate, base of uvula visible Class IV: Only hard plate visible Mallampati Classification: Class II Surgeon: Asmita Diagnosis: R Knee Pain Surgical Procedure: R Knee Total Arthroplasty Family History: no anesthesia problems Allergies: Uncoded Allergies: ALL NUTS (Allergy, Severe, THROAT CLOSES UP, 01/16/19) Medications: see eMAR Patient NPO?: Yes NPO Date: Jan 16, 2019 NPO Time: 2355 Past Medical History Cardiovascular: Reports: HTN Gastrointestinal/Genitourinary: Reports: GERD Endocrine: Reports: DM HEENT: Reports: cataract (L), cataract (R) PSxH Narrative: L TKR, Embolize uterus Anesthesia Pre-op Phys. Exam Physician Exam Last Vital Signs Date Time Temp Pulse Resp B/P (MAP) Pulse Ox O2 Delivery O2 Flow Rate FiO2 01/17/19 08:16 Room Air 01/17/19 08:03 97.0 74 20 130/71 (90) 97 Constitutional: NAD Neurologic: CN 2-12 intact Cardiovascular: RRR Respiratory: CTA Gastrointestinal: S/NT/ND Airway Exam Mallampati Score: Class II MO: limited ROM: limited Teeth: missing, intact Anesthesia Pre-op A/P Labs Hematology Test 01/17/19 07:50 White Blood Count Pending Red Blood Count Pending Hemoglobin Pending Hematocrit Pending Mean Corpuscular Volume Pending Mean Corpuscular Hemoglobin Pending Mean Corpuscular Hemoglobin Concent Pending Red Cell Distribution Width Pending Platelet Count Pending Mean Platelet Volume Pending Neutrophils (%) (Auto) Pending Lymphocytes (%) (Auto) Pending Monocytes (%) (Auto) Pending Eosinophils (%) (Auto) Pending Basophils (%) (Auto) Pending Coagulation Test 01/17/19 07:50 Prothrombin Time Pending Prothromb Time International Ratio Pending Activated Partial Thromboplast Time Pending Chemistry Test 01/17/19 07:50 Sodium Level Pending Potassium Level Pending Chloride Level Pending Carbon Dioxide Level Pending Blood Urea Nitrogen Pending Creatinine Pending Estimat Glomerular Filtration Rate Pending Glucose Level Pending Calcium Level Pending Risk Assessment & Plan Assessment: ASA 3 Plan: GA, Spinal Status Change Before Surgery: No Pre-Antibiotics Dru grams Ancef IV Given Within 1 Hr of Incision: Yes Time Given: 09:21 Dirk Hoffman MD Jan 17, 2019 08:29
[2019-01-17] MEDS ORDERED: Hydromorphone 0.5mg/0.5ml inj IVP PRN ×2 (08:30→12:30)
[2019-01-17] MEDS ORDERED: Sterile Water Irrig 1000ml IRRIG ONE (08:30)
[2019-01-17] MEDS ORDERED: oxyCODONE HCL/Acetaminophen 5/325mg ORAL PRN (08:30)
[2019-01-17] MEDS ORDERED: Tranexamic Acid 100 ML IVPB ONE (08:30)
[2019-01-17] MEDS ORDERED: HYDROcodone/Acetamin 5/325 tab ORAL PRN (08:30)
[2019-01-17] MEDS ORDERED: Atropine Sulfate 0.4mg/ml inj IVP PRN (08:30)
[2019-01-17] MEDS ORDERED: HYDROcodone/Acetamin 7.5/325 tab ORAL PRN (08:30)
[2019-01-17] MEDS ORDERED: Ketorolac 30mg Inj IV PRN ×2 (08:30)
[2019-01-17] MEDS ORDERED: Midazolam 2mg/2ml Inj IVP PRN (08:30)
[2019-01-17] MEDS ORDERED: LORazepam Inj 2mg/ml 1ml IV PRN (08:30)
[2019-01-17] MEDS ORDERED: Meperidine 50mg/ml Inj(FOR RIGORS ONLY) IVP PRN (08:30)
[2019-01-17] MEDS ORDERED: DiphenhydrAMINE 50mg/ml Inj IVP PRN (08:30)
[2019-01-17] MEDS ORDERED: Metoclopramide 10mg/2ml Inj IVP PRN (08:30)
[2019-01-17] MEDS ORDERED: LR 1000ml ONE (08:30)
[2019-01-17] MEDS ORDERED: Labetalol 5mg/ml 20ml vial IV PRN (08:30)
[2019-01-17] MEDS ORDERED: NS Irrig 1000ml ONE (08:30)
[2019-01-17] MEDS ORDERED: Tranexamic Acid 1,000 MG in NS 65 ML IV ONE ×2 (08:30→08:45)
[2019-01-17] MEDS ORDERED: fentaNYL 100 mcg/2 mL IV PRN (08:30)
[2019-01-17 08:34] LABS: ANION GAP 9 mmol/L (5-15); BLOOD UREA NITROGEN 16 mg/dL (7-18); CALCIUM 9.5 MG/DL (8.5-10.1); CARBON DIOXIDE 26 MMOL/L (21-32); CHLORIDE 106 MMOL/L (98-107); CREATININE 0.6 MG/DL (0.55-1.30); SODIUM 141 MMOL/L (136-145)
[2019-01-17] MEDS ORDERED: Propofol 200mg/20ml IV ONE (08:38)
[2019-01-17] MEDS ORDERED: Lidocaine 1% MPF 10mg/ml 5ml ONE (08:38)
[2019-01-17] MEDS ORDERED: Sodium Chloride 10ml vial INJ ONE (08:38)
[2019-01-17] MEDS ORDERED: fentaNYL 100 mcg/2 mL IV ONE (08:39)
[2019-01-17] MEDS ORDERED: Dexamethasone 4mg/ml vial ONE (08:39)
[2019-01-17] MEDS ORDERED: EPINEPHrine 1mg/1ml Amp ONE ×2 (08:39→08:57)
[2019-01-17] MEDS ORDERED: Ropivacaine 5mg/ml Vial 30ml INJ ONE (08:39)
[2019-01-17 08:40] LABS: INR 0.9 (0.9-1.1)
[2019-01-17] MEDS ORDERED: Acetaminophen (Non formulary) 100 ML IV ONE (08:45)
[2019-01-17] MEDS ORDERED: cloNIDine 1000mcg/10ml inj ONE (08:57)
[2019-01-17] MEDS ORDERED: Bupivacaine 0.5% Inj 30 ml vial INJ ONE (08:58)
--- NOTE | 2019-01-17 08:59 | Pre-Procedure Note/Attestation ---
Pre-Procedure Note/Attestation Complete Prior to Procedure Planned Procedure: right Procedure Narrative: right knee replacement Indications for Procedure Pre-Operative Diagnosis: right knee arthritis Attestation I attest that I discussed the nature of the procedure; its benefits; risks and complications; and alternatives (and the risks and benefits of such alternatives ), prior to the procedure, with the patient (or the patient's legal personal service representative). I attest that, if there was a reasonable possibility of needing a blood transfusion, the patient (or the patient's legal personal service representative) was given the [facility] standardized written summary, pursuant to the Rajiv Shedd Blood Safety Act ([place] Health and Safety Code # 1645, as amended). I attest that I re-evaluated the patient just prior to the surgery and that there has been no change in the patient's H&P, except as documented below: Demetrius Ernandez MD Jan 17, 2019 08:59
[2019-01-17] MEDS ORDERED: Morphine Sulfate 4mg/ml Inj (IV USE ONLY) IVP PRN (09:00)
[2019-01-17] MEDS ORDERED: Morphine Sulfate 2mg/ml Inj(IV/IM USE ONLY) IVP PRN ×2 (09:00)
--- NOTE | 2019-01-17 09:20 | General Progress Note ---
Assessment/Plan Assessment/Plan: right knee arthroplasty right knee arthritis PLAN 1. incentive spirometry 2. Lovenox 3. PT evaluation and therapy 4. Hydration 5. Pain management 6. discharge once stable with outpatient follow up Subjective Allergies: Uncoded Allergies: ALL NUTS (Allergy, Severe, THROAT CLOSES UP, 01/16/19) Subjective asked to follow up post op Objective Last 24 Hour Vital Signs Date Time Temp Pulse Resp B/P (MAP) Pulse Ox O2 Delivery O2 Flow Rate FiO2 01/17/19 08:16 Room Air 01/17/19 08:03 97.0 74 20 130/71 (90) 97 Laboratory Tests 01/17/19 07:50: White Blood Count 6.2, Red Blood Count 4.73, Hemoglobin 14.9, Hematocrit 41.2, Mean Corpuscular Volume 87, Mean Corpuscular Hemoglobin 31.5H, Mean Corpuscular Hemoglobin Concent 36.2H, Red Cell Distribution Width 9.9L, Platelet Count 206, Mean Platelet Volume 6.4L, Neutrophils (%) (Auto) 53.7, Lymphocytes (%) (Auto) 33.5, Monocytes (%) (Auto) 7.7, Eosinophils (%) (Auto) 3.9H, Basophils (%) (Auto ) 1.2, Prothrombin Time 10.1, Prothromb Time International Ratio 0.9, Activated Partial Thromboplast Time 25, Sodium Level 141, Potassium Level 4.0, Chloride Level 106, Carbon Dioxide Level 26, Anion Gap 9, Blood Urea Nitrogen 16, Creatinine 0.6, Estimat Glomerular Filtration Rate > 60, Glucose Level 145H, Calcium Level 9.5 Height (Feet): 5 Height (Inches): 10.00 Weight (Pounds): 272 Objective WDWN NAD clear breath sounds bilaterally without rhonchi or wheeze [id number] without MRG NABS nontender no HSM no CCE nonfocal Elkin Erazo MD Jan 17, 2019 09:20
[2019-01-17] MEDS ORDERED: ePHEDrine 50mg/ml Inj ONE (09:29)
--- NOTE | 2019-01-17 09:56 | Immediate Post-Op Evaluation ---
Immediate Post-Op Evalulation Immediate Post-Op Evalulation Procedure: R Knee total Arthroplasty Date of Evaluation: Jan 17, 2019 Time of Evaluation: 11:34 IV Fluids: 1000 LR Blood Products: 0 Estimated Blood Loss: 50 Urinary Output: 100 Blood Pressure Systolic: 122 Blood Pressure Diastolic: 57 Pulse Rate: 86 Respiratory Rate: 16 O2 Sat by Pulse Oximetry: 98 Temperature (Fahrenheit): 97 Pain Score (1-10): 1 Nausea: No Vomiting: No Complications 0 Patient Status: awake, reacts, patent, none Hydration Status: adequate Dru Grams Ancef IV Given Within 1 Hr of Incision: Yes Time Given: 09:21 Dirk Hoffman MD Jan 17, 2019 09:56
[2019-01-17] MEDS ORDERED: oxyCODONE 5mg IR tab ORAL PRN (12:30)
[2019-01-17] MEDS ORDERED: Morphine Sulfate 2mg/ml Inj(IV/IM USE ONLY) IM PRN (12:30)
--- NOTE | 2019-01-17 12:50 | NUR ---
NURSE NOTES: REC'D FROM PACU SP RTKR. AWAKE ALERT. NO CO PAIN. RT KNEE DRESSING DRY AND INTACT. ICE PACK ON.IMMOBILIZER ON. WITH HEMOVAC IN PLACE DRAINING SEROUS DRAINAGE. WITH GOOD PEDAL PULSE. WITH SENSATION ON RT UPPER THIGH. VS TAKEN. IN NO DISTRESS.
--- NOTE | 2019-01-17 13:51 | NUR ---
NURSE NOTES: DR Sonia TONY CALLED RE :PT'S RECONCILIATION MEDS. LEFT MESSAGE TO RETURN CALL. Addendum: 01/17/19 at 1402 by ARNULFO OHARA RN DISREGARD ABOVE NOTATION, INCORRECT DOCTOR.
[2019-01-17] MEDS ORDERED: D5 1/2NS w/KCl 20mEq 1,000 ML IV SCH (14:00)
--- NOTE | 2019-01-17 14:02 | NUR ---
NURSE NOTES: DR MENDEZ CALLED RE PT'S RECONCILIATION MED LIST. LEFT MESSAGE TO RETURN CALL.
--- NOTE | 2019-01-17 15:04 | NUR ---
RADIOLOGY DEPT., RIGHT KNEE X-RAY COMPLETED.-P.DYE
[2019-01-17] MEDS: 1/2NS w/KCl 20mEq 1000ml 1,000 ML IV SCH (15:42)
[2019-01-17] MEDS: Enoxaparin 40mg Inj SUBQ SCH (15:46)
[2019-01-17] MEDS: HYDROcodone/Acetamin 10/325 tab ORAL PRN ×2 (15:49→18:19)
--- NOTE | 2019-01-17 15:50 | NUR ---
CASE MANAGEMENT: REVIEW 58Y/O FEMALE HERE FOR ELECTIVE SURGERY. SI: RIGHT KNEE OSTEOARTHRITIS, 97.0 74 20 130/70 97% RA IS: TO SURGERY RIGHT KNEE ARTHROPLASTY IV ANCEF Q8H LOVENOX SQ QD IVFS NS @75MLS/HR TO MED-SURG 3 EAST POST-OP
--- NOTE | 2019-01-17 15:57 | Diagnostic Imaging Report ---
Indications: Postoperative Technique: Two views of the right knee Comparison: None Findings: Two postoperative views of the right knee demonstrate total knee arthroplasty, good anatomic alignment of the prosthesis. . There is postsurgical soft tissue air. Overlying skin zandra. Impression: Postoperative right knee, no unusual features.
[2019-01-17] MEDS: ceFAZolin sod 1 GM in D5W 55 ML IV SCH (16:57)
--- NOTE | 2019-01-17 19:00 | NUR ---
NURSE NOTES: AWAKE. NO ACUTE DISTRESS.
--- NOTE | 2019-01-17 19:39 | NUR ---
HAND-OFF: Report given to Devora PALM RN.
[2019-01-17 20:14] LABS: HEMATOCRIT 41.3 % (37.0-47.0); HEMOGLOBIN 14.9 G/DL (12.0-16.0); MEAN CORPUSCULAR VOLUME 88 FL (80-99); PLATELET COUNT 217 K/UL (150-450); RED CELL DISTRIBUTION WIDTH 9.9 % (11.6-14.8); WHITE BLOOD COUNT 5.8 K/UL (4.8-10.8)
[2019-01-17] MEDS: Hydromorphone 0.5mg/0.5ml inj IVP PRN (22:47)
[2019-01-18] VITALS (7 sets, daily range): BP systolic 107–132; BP diastolic 60–70
[2019-01-18] MEDS: ceFAZolin sod 1 GM in D5W 55 ML IV SCH (01:13)
--- NOTE | 2019-01-18 01:57 | NUR ---
AWAKE,ALERT IN BED,PAIN LEVEL AT THIS TIME 1S10.RT.KNEE DRESSING DRY/INTACT.CIRCULATION ISGOOD.CONTINOUS ICEPACK ON.PAIN MEDICATION GIVEN NEEDED.DOZING ON AND OFF.WILL CONTINUE TO MONITOR
[2019-01-18] MEDS: Hydromorphone 0.5mg/0.5ml inj IVP PRN (03:27)
[2019-01-18] MEDS: 1/2NS w/KCl 20mEq 1000ml 1,000 ML IV SCH (04:57)
[2019-01-18 05:54] LABS: BASOPHILS % (AUTO) 0.3 % (0.0-2.0); EOSINOPHILS % (AUTO) 0.2 % (0.0-3.0); HEMATOCRIT 35.7 % (37.0-47.0); HEMOGLOBIN 12.4 G/DL (12.0-16.0); LYMPHOCYTES % (AUTO) 15.9 % (20.0-45.0); MEAN CORPUSCULAR VOLUME 91 FL (80-99); MONOCYTES % (AUTO) 6.8 % (1.0-10.0); NEUTROPHILS % (AUTO) 76.8 % (45.0-75.0); PLATELET COUNT 214 K/UL (150-450); RED BLOOD COUNT 3.92 M/UL (4.20-5.40); RED CELL DISTRIBUTION WIDTH 11.1 % (11.6-14.8)
[2019-01-18] MEDS ORDERED: oxyCODONE 5mg IR tab ORAL PRN (06:30)
[2019-01-18] MEDS: oxyCODONE 5mg IR tab ORAL PRN ×5 (06:32→23:08)
[2019-01-18] MEDS ORDERED: Milk of Magnesia 30ml Ud ORAL PRN (07:15)
--- NOTE | 2019-01-18 07:15 | NUR ---
HAND-OFF: Report given to KURTIS ARREDONDO. PATIENT IN STABLE CONDITION.
--- NOTE | 2019-01-18 07:29 | NUR ---
NURSE NOTES: AWAKE/ALERT. PAIN SCALE 5/10. RT KNEE DRESSING DRY AND INTACT ICE PACK ON. IMMOBILIZER ON. WITH GOOD PEDAL PULSE. IN NO ACUTE DISTRESS.
[2019-01-18] MEDS ORDERED: Morphine Sulfate 2mg/ml Inj(IV/IM USE ONLY) IM PRN ×2 (08:00→09:30)
[2019-01-18] MEDS: Losartan 50mg tab ORAL SCH (08:49)
--- NOTE | 2019-01-18 08:49 | General Progress Note ---
Assessment/Plan Assessment/Plan: right knee arthroplasty right knee arthritis diabetes PLAN 1. incentive spirometry 2. Lovenox 3. PT evaluation and therapy 4. diabetic management as is 5. Pain management 6. discharge once stable with outpatient follow up Subjective Allergies: Uncoded Allergies: ALL NUTS (Allergy, Severe, THROAT CLOSES UP, 01/16/19) Subjective care noted and reviewed no distress Objective Last 24 Hour Vital Signs Date Time Temp Pulse Resp B/P (MAP) Pulse Ox O2 Delivery O2 Flow Rate FiO2 01/18/19 08:00 98.4 76 15 130/63 (85) 93 01/18/19 03:40 99.0 78 17 129/68 (88) 92 01/18/19 00:00 97.9 72 16 119/60 (79) 93 01/17/19 20:00 98.3 78 17 135/71 (92) 92 01/17/19 18:49 98.1 01/17/19 17:00 97.1 76 21 110/65 (80) 97 01/17/19 15:56 98.1 90 21 101/61 (74) 96 01/17/19 14:00 97.2 86 18 110/60 (77) 97 01/17/19 12:50 97.3 75 22 117/58 97 Nasal Cannula 3 01/17/19 12:50 98.2 79 18 101/53 (69) 98 01/17/19 12:35 75 20 127/60 97 Nasal Cannula 3 01/17/19 12:20 78 19 119/57 97 Nasal Cannula 3 01/17/19 12:05 82 19 119/74 98 Nasal Cannula 3 01/17/19 11:50 81 20 117/70 99 Nasal Cannula 3 01/17/19 11:40 82 20 139/72 99 Simple Mask 6 01/17/19 11:30 79 20 126/68 97 Simple Mask 6 01/17/19 11:25 81 16 127/58 98 Simple Mask 6 01/17/19 11:23 97.0 82 15 122/57 98 Simple Mask 6 01/17/19 11:21 86 16 98 Intake and Output 01/17/19 01/18/19 19:00 07:00 Intake Total 1870.0 ml 2025 ml Output Total 1850 ml 1080 ml Balance 20.0 ml 945 ml Intake Oral 240 ml 1200 ml IV Total 1630.0 ml 825 ml Output Urine Total 1500 ml 1050 ml Drainage Total 300 ml 30 ml Estimated Blood Loss 50 ml # Voids 1 Laboratory Tests 01/18/19 05:04: White Blood Count 11.0#H, Red Blood Count 3.92L, Hemoglobin 12.4, Hematocrit 35.7L, Mean Corpuscular Volume 91, Mean Corpuscular Hemoglobin 31.6H, Mean Corpuscular Hemoglobin Concent 34.7, Red Cell Distribution Width 11.1L, Platelet Count 214, Mean Platelet Volume 6.6, Neutrophils (%) (Auto) 76.8H, Lymphocytes (%) (Auto) 15.9L, Monocytes (%) (Auto) 6.8, Eosinophils (%) (Auto) 0.2, Basophils (%) (Auto) 0.3, Prothrombin Time 10.4, Prothromb Time International Ratio 1.0 Height (Feet): 5 Height (Inches): 10.00 Weight (Pounds): 272 Objective WDWN NAD clear breath sounds bilaterally without rhonchi or wheeze [id number] without MRG NABS nontender no HSM no CCE nonfocal Elkin Erazo MD Jan 18, 2019 08:49
[2019-01-18] MEDS: Enoxaparin 40mg Inj SUBQ SCH (08:50)
--- NOTE | 2019-01-18 09:15 | Consultation ---
DATE OF CONSULTATION: 01/18/2019 CONSULTING PHYSICIAN: Valente Kramer M.D. REFERRING PHYSICIAN: Demetrius Ernandez M.D. REASON FOR CONSULTATION: Acute pain consult HISTORY OF PRESENT ILLNESS: Dear Dr. Demetrius Ernandez, Thank you kindly for consulting me to evaluate and render an opinion as to how to proceed in the management of the patient's acute postoperative right knee pain after right total knee arthroplasty. On your request, I saw the patient for acute pain consultation at the bedside. I discussed the case with yourself, Dr. Ernandez along with Internal Medicine, Dr. Erazo and the hospital pharmacist, Alexy, discussed the case with the orthopedic floor nurse, KURTIS Elam, along with the recovery room nurse, KURTIS Hamm. I spent over 75 minutes in consultation along with additional 30 minutes in medical record review. PAST MEDICAL HISTORY: 1. Acute postoperative right knee pain, status post right total knee arthroplasty by Dr. Demetrius Ernandez, January 2019. 2. Morbid obesity. Body mass index of 39. 3. Hypertension. 4. Diabetes. 5. GERD. PAST SURGICAL HISTORY: Left total knee replacement by Dr. Ernandez in 2017. ALLERGIES: No known drug allergies. Food allergies to all nuts, with anaphylactic shortness of breath. MEDICATIONS AT HOME: NSAIDs, losartan, metformin, and Prilosec. SOCIAL HISTORY: The patient lives at home with her two teenage children. She denies tobacco usage. She uses marijuana rarely. REVIEW OF SYSTEMS: Per Dr. Erazo. FAMILY HISTORY: Obesity, hypertension, and diabetes. PHYSICAL EXAMINATION: VITAL SIGNS: Age 58, height 5 feet 10 inches, weight 123 kg. Body mass index 39. Afebrile. Pulse 78, respirations 17, blood pressure 129/68, oxygen saturation 98% on room air. HEENT: Normocephalic and atraumatic. CHEST: Barrel chested. ABDOMEN: Massively obese. Positive bowel sounds. MUSCULOSKELETAL: Right knee with dry dressing. Significant pain with range of motion. Moving all extremities x4. Veliz catheter in place. BREASTS/GENITOURINARY: Deferred to Dr. Erazo. DIAGNOSTIC TESTING: Laboratory studies from this morning, postop day #1, 01/18/2019, white count 11, hematocrit 36, platelets 214,000. INR 1.0. IMPRESSION: 1. Acute postoperative right knee pain, status post right total knee arthroplasty by Dr. Demetrius Ernandez, January 2019. 2. Morbid obesity. Body mass index of 39. 3. Hypertension. 4. Diabetes. 5. GERD. TREATMENT RECOMMENDATIONS: After multiple discussions with the hospital nurses and pharmacy staff and discussion with the patient, I started the patient on a tiered regimen of analgesics. I trialed her on oxycodone 5 mg instant release. This dose was well tolerated and the patient believes she could tolerate higher dose. I doubled the dose to 10 mg, which has been more efficacious without any untoward side effects. I will continue the 5 mg orally every three hours pain for mild pain. I will continue the 10 mg orally every three hours p.r.n. for moderate pain. I will trial the patient both on IV Dilaudid as well as intramuscular morphine for tolerability. The patient states that the intramuscular morphine 4 mg dose was extremely effective and I will continue this dose every three hours p.r.n. for severe pain. I discontinued the Dilaudid to help simplify her analgesic plan. The patient does not appear to be anxious. I would avoid the class of benzodiazepines and concentrate on MU-opioid agonist agents for now, for primary analgesia. Dr. Ernandez has placed the patient on chemical anticoagulation with Lovenox 40 mg subcutaneously on this morbidly obese patient who is at significant risk for deep venous thrombosis and pulmonary embolism complications due to the nature of surgery. Dr. Erazo is managing the patient's hypertension and diabetes issues. For the patient's comfort, I have ordered Benadryl 25 mg every 6 hours in case of any itching complaints. I have ordered Zofran 4 mg intravenously every 4 hours p.r.n. for nausea and vomiting. The patient will be restarted on her Protonix for GI ulcer prophylaxis which she takes at home. I also ordered p.r.n. dose of Mylanta 30 mL q.6 hours in case of any GERD symptom exacerbation. I encouraged aggressive incentive spirometer usage to avoid pulmonary atelectasis postoperatively. We will forward a prescription for outpatient Percocet to the outpatient pharmacy to help expedite her hospital discharge. Valente Kramer M.D. DR: REX JOB#: [id number] CC:
--- NOTE | 2019-01-18 11:26 | NUR ---
*-* INSURANCE *-* ALL AVAILABLE CLINICALS HAVE BEEN FAXED TO: [facility] PLEASE FAX THE CLINICAL/REVIEW NO MENTAL HEALTH CLINICIAN ASSIGNED... FX: [phone]
--- NOTE | 2019-01-18 12:23 | 48 Hour Post Anesthesia Eval ---
Post Anesthesia Evaluation Procedure: R Knee total Arthroplasty Date of Evaluation: Jan 18, 2019 Time of Evaluation: 12:21 Blood Pressure Systolic: 130 0: 63 Pulse Rate: 76 Respiratory Rate: 15 Temperature (Fahrenheit): 98.4 O2 Sat by Pulse Oximetry: 93 Airway: patent Nausea: No Vomiting: No Pain Intensity: 4 Hydration Status: adequate Cardiopulmonary Status: stable Mental Status/LOC: patient returned to baseline Follow-up Care/Observations: doing well with pain management, tolerated wean to RA, VSS Post-Anesthesia Complications: none Joy Aquino CRNA Jan 18, 2019 12:23
--- NOTE | 2019-01-18 14:23 | NUR ---
P.T Note: late entry for 0945 P.T evaluation completed and tx initiated per TKR protocol. Please refer to P.T evaluation for current functional status. Pt is alert, O x 4, pleasant and cooperative . Pt is limited by R knee LOM, pain and dizziness affecting overall functional mobility performance. Pt currently require MIN A x 1 for bed mobility and transfer and CGA X 1 for ambulating 5 ft with CGA X 1. Skilled P.T service is warranted to improve strength, R Knee ROM , balance and endurance to increase functional mobility independence. Recommend Home P.T follow up at [place]. DME'S to include [facility] and 3 in 1 commode. Thank you for this referral.
--- NOTE | 2019-01-18 14:30 | NUR ---
CASE MANAGEMENT:REVIEW 01/18/19 SI: POD #1 98.3 74 15 132/66 94% ON RA WBC+11.0 IS: LOVENOX SQ QD IV ZOFRAN Q4HRS PRN OXYCODONE PO Q3HRS PRN IV MORPHINE Q3HRS PRN PROTONIX PO QAM METFORMIN PO QD COZAAR PO QD : MED/SURG STATUS DCP: PATIENT IS FROM HOME
--- NOTE | 2019-01-18 15:39 | NUR ---
P.T Note: late entry 01/17/19 1530 CPM set up and and tolerating 0-60 deg. CPM was endorsed to nursing at the end of P.T shift.
--- NOTE | 2019-01-18 19:00 | NUR ---
NURSE NOTES: AWAKE IN BED. IN NO DISTRESS.
--- NOTE | 2019-01-18 19:30 | NUR ---
NURSE NOTES: Received patient in bed. A/O x4. Patient denies pain at this time. Ice pack on the right knee. On room air. No respiratory distress noted. Dressing on Right knee dry and intact. Hemovac intact. IV in Left forearm saline lock noted with no redness or swelling. Incentive spirometer at bedside within reach. SCDs off.
--- NOTE | 2019-01-18 19:42 | NUR ---
HAND-OFF: Report given to Devora PALM RN.
[2019-01-19] MEDS: oxyCODONE 5mg IR tab ORAL PRN ×5 (03:37→20:20)
[2019-01-19 03:57] VITALS: BP 128/63
[2019-01-19 06:02] LABS: BASOPHILS % (AUTO) 0.8 % (0.0-2.0); EOSINOPHILS % (AUTO) 1.2 % (0.0-3.0); HEMATOCRIT 33.1 % (37.0-47.0); HEMOGLOBIN 12.4 G/DL (12.0-16.0); LYMPHOCYTES % (AUTO) 21.1 % (20.0-45.0); MEAN CORPUSCULAR VOLUME 87 FL (80-99); MONOCYTES % (AUTO) 10.6 % (1.0-10.0); NEUTROPHILS % (AUTO) 66.3 % (45.0-75.0); PLATELET COUNT 209 K/UL (150-450); RED CELL DISTRIBUTION WIDTH 9.9 % (11.6-14.8); WHITE BLOOD COUNT 11.6 K/UL (4.8-10.8)
--- NOTE | 2019-01-19 07:31 | NUR ---
HAND-OFF: Report given to Olga HULL.
--- NOTE | 2019-01-19 07:40 | NUR ---
NURSE NOTES: Pt awake, call light is in reach. Denies pain at this time.
[2019-01-19 08:00] VITALS: BP 127/76
[2019-01-19] MEDS ORDERED: Morphine Sulfate 2mg/ml Inj(IV/IM USE ONLY) IVP PRN (08:00)
[2019-01-19] MEDS: Losartan 50mg tab ORAL SCH (09:41)
[2019-01-19] MEDS: Enoxaparin 40mg Inj SUBQ SCH (09:46)
[2019-01-19 12:00] VITALS: BP 123/69
--- NOTE | 2019-01-19 15:00 | Progress Note ---
DATE: 01/19/2019 ACUTE PAIN MANAGEMENT PHYSICIAN PROGRESS NOTE MEDICATIONS: Medication administration record reviewed. Medication include Tylenol, Benadryl, Lovenox, Cozaar, Glucophage, milk of magnesia, morphine, Mylanta, Zofran, Roxicodone, and Protonix. LABORATORY STUDIES: From yesterday, January 18, 2019 shows white count of 11, hematocrit 36, platelets 214. INR 1.0. PHYSICAL EXAMINATION: VITAL SIGNS: Within normal limits. Afebrile, pulse 79, respirations 18, blood pressure 120/63, and oxygen saturation 94% on room air. I saw the patient at bedside. I discussed the case with the nurse RN, Linda. The patient is doing quite well. She has been responding well to the oral oxycodone 10 mg tablet. This increased dose from 5 mg has been more affective. The outpatient pharmacy was able to fill the patient's prescription for medications, so the patient will have plenty of Percocets for when she returns home. For the past 24 hours, the patient has been able to increase her ambulation well. She was only able to walk around the room, but has been increasing her CPM usage and feels confident that she will be able to walk further today. The patient is breathing comfortably on room air. She has been advancing her diet without any nausea symptoms. She denies any shortness breath or chest pain. The patient is on chemical anticoagulation with Lovenox daily. Dr. Erazo is treating her hypertension, blood pressure well. I will continue to streamline the patient's medication list. I will discontinue the 5 mg oxycodone dose making only available the 10 mg dose p.r.n. The patient asked to reduce the dosing of the morphine, so I will switch it from 4 mg to 2 mg intravenously for severe breakthrough pain. The knee drain catheter remains in place. I will defer this time for Dr. Ernandez to determine when the drain catheter should be removed along with surgical dressing change. Valente Kramer M.D. DR: SABINE JOB#: [id number] CC:
--- NOTE | 2019-01-19 15:01 | NUR ---
NURSE NOTES: Pt walked with PT . Given assistance , to bathroom. Required help to move her left leg. Provided assistance with grooming. Call light is in reach
--- NOTE | 2019-01-19 15:25 | NUR ---
CASE MANAGEMENT:REVIEW 01/19/19 SI: POD #2 RT TOTAL KNEE REPLACEMENT 97.8 75 18 127/76 96% ON RA WBC+11.6 IS: LOVENOX SQ QD IV ZOFRAN Q4HRS PRN OXYCODONE PO Q3HRS PRN IV MORPHINE Q3HRS PRN PROTONIX PO QAM METFORMIN PO QD COZAAR PO QD : MED/SURG STATUS DCP: PATIENT IS FROM HOME
[2019-01-19 16:00] VITALS: BP 114/57
--- NOTE | 2019-01-19 16:06 | General Progress Note ---
Assessment/Plan Assessment/Plan: right knee arthroplasty right knee arthritis diabetes PLAN 1. incentive spirometry 2. Lovenox 3. PT evaluation and therapy 4. diabetic management as is 5. Pain management 6. dc drain and dc planning pending surgical clearance Subjective Allergies: Coded Allergies: COCONUT (Verified Allergy, Mild, 12/21/16) RASH RHUBARB (Verified Allergy, Mild, 12/21/16) RASH STRAWBERRY (Verified Allergy, Mild, 12/21/16) RASH Uncoded Allergies: ALL NUTS (Allergy, Severe, THROAT CLOSES UP, 01/19/19) TREE NUTS (Allergy, Severe, 12/21/16) THROAT SWELLS UP EGGPLANT (Allergy, Mild, 12/21/16) RASH Subjective care noted and reviewed no distress Objective Last 24 Hour Vital Signs Date Time Temp Pulse Resp B/P (MAP) Pulse Ox O2 Delivery O2 Flow Rate FiO2 01/19/19 09:41 126/72 01/19/19 09:00 Room Air 01/19/19 08:00 97.8 75 18 127/76 (93) 96 01/19/19 03:57 99.0 79 18 128/63 (84) 94 01/18/19 23:18 98.8 87 16 107/63 (78) 92 01/18/19 21:00 Room Air 01/18/19 20:00 98.0 89 17 131/70 (90) 91 Intake and Output 01/18/19 01/19/19 18:59 06:59 Intake Total 1050 ml 700 ml Output Total 1650 ml 40 ml Balance -600 ml 660 ml Intake Oral 900 ml IV Total 150 ml Other 700 ml Output Urine Total 1650 ml Drainage Total 40 ml # Voids 4 3 Laboratory Tests 01/19/19 05:10: White Blood Count 11.6H, Red Blood Count 3.80L, Hemoglobin 12.4, Hematocrit 33.1L, Mean Corpuscular Volume 87, Mean Corpuscular Hemoglobin 32.6H, Mean Corpuscular Hemoglobin Concent 37.4H, Red Cell Distribution Width 9.9L, Platelet Count 209, Mean Platelet Volume 6.6, Neutrophils (%) (Auto) 66.3, Lymphocytes (%) (Auto) 21.1, Monocytes (%) (Auto) 10.6H, Eosinophils (%) (Auto) 1.2, Basophils (%) (Auto) 0.8, Prothrombin Time 10.4, Prothromb Time International Ratio 1.0 Height (Feet): 5 Height (Inches): 10.00 Weight (Pounds): 272 Objective WDWN NAD clear breath sounds bilaterally without rhonchi or wheeze [id number] without MRG NABS nontender no HSM no CCE nonfocal Elkin Erazo MD Jan 19, 2019 16:06
--- NOTE | 2019-01-19 19:07 | NUR ---
NURSE NOTES: Pt participated in PT CPM machine on agapito not complete full round. Benji recommended it to be taken off at 8:00 pm, taken off at 6:30. Pt ambulated to restroom with assistance x3 . Output to hemovac sanguinous 40 cc. Refused lunch accucheck. Results fo dinner 167. Call light is in reach , Dr Schmitt called earlier in shift per pt request states he will be here to visit pt today. Upon this writing has not come .
--- NOTE | 2019-01-19 19:11 | NUR ---
HAND-OFF: Report given to Hanna HULL.
--- NOTE | 2019-01-19 19:29 | NUR ---
NURSE NOTES: Received report from KURTIS Espinoza, patient is stable A/Ox4, breaths regularand unlabored ,patient has a (L) for arm 20g I.V site, patent and asymptomatic. C/O pain R knee 03/19, will provide medication as ordered . Patient CPM machine taken off already per patient request. will continue to monitor
[2019-01-19 20:00] VITALS: BP 120/56
[2019-01-20] VITALS: BP 123/70
[2019-01-20 04:00] VITALS: BP 120/65
--- NOTE | 2019-01-20 07:48 | NUR ---
HAND-OFF: Report given to KURTIS Galindo.
[2019-01-20 08:00] VITALS: BP 132/77
--- NOTE | 2019-01-20 08:29 | NUR ---
NURSE NOTES: Received pt from KURTIS Ferreira. pt was resting no acute distress, waiting for D/C today, call light w/in reach
[2019-01-20 08:44] LABS: BASOPHILS % (AUTO) 0.7 % (0.0-2.0); EOSINOPHILS % (AUTO) 1.2 % (0.0-3.0); HEMATOCRIT 33.9 % (37.0-47.0); HEMOGLOBIN 11.6 G/DL (12.0-16.0); MEAN CORPUSCULAR VOLUME 92 FL (80-99); NEUTROPHILS % (AUTO) 64.1 % (45.0-75.0); PLATELET COUNT 226 K/UL (150-450); RED BLOOD COUNT 3.69 M/UL (4.20-5.40); RED CELL DISTRIBUTION WIDTH 11.1 % (11.6-14.8); WHITE BLOOD COUNT 9.4 K/UL (4.8-10.8)
--- NOTE | 2019-01-20 08:45 | Progress Note ---
DATE: 01/20/2019 ACUTE PAIN MANAGEMENT PHYSICIAN PROGRESS NOTE MEDICATIONS: Medication administration record reviewed. Medications include Tylenol, Mylanta, Benadryl Lovenox, Cozaar, milk of magnesia, Glucophage, morphine, Zofran, Roxicodone, Protonix. Laboratory studies from yesterday, January 19, 2019 shows white count 12, hematocrit 33, platelets 210. INR 1.0. VITAL SIGNS: Afebrile. T-max last night of 100.6, currently afebrile, pulse 86, respirations 18, blood pressure 120/65, oxygen saturation 95% on room air. I saw the patient at bedside with the nurse, KURTIS Oliveros. I discussed the case with the charge nurse RN, Sheree. I also discussed the case with the surgeon, Dr. Ernandez along with Internal Medicine, Dr. Erazo. The patient continues to advance her ambulation well. She is using her oral oxycodone 10 mg dosing with excellent efficacy. She is able to move around the hospital room with her walker. She is and shows no signs of oversedation. The patient is in pleasant spirits. The outpatient pharmacy already dispensed a bottle of Percocet 10 mg tablets for outpatient usage. The patient has not needed the parental morphine for over 24 hours. She denies any shortness of breath or chest pain. The patient states that her daughter will be able to assist her at home with activities of daily living. Two years ago, when the patient had her contralateral knee replacement surgery, she self-administered Lovenox daily for 2 weeks without any difficulties. I will leave a prescription for Lovenox 40 mg daily for 2 weeks supply in case the surgeon, Dr. Ernandez decides to discharge the patient home today. If Dr. Erazo or Dr. Ernandez prefer to use a different anticoagulant postoperatively, the patient will discard my prescription for Lovenox. With several nurses at the bedside, I examined the right knee surgical site. Drain output had decreased significantly to 40 mL. I removed the Godwin bandages. I then removed the gauze to reveal the staple line clean and dry with zandra intact. There was no evidence for erythema or exudate. I removed the Steri-Strips holding in the indwelling right knee drain catheter. With the Hemovac drain taken off of suction, I personally removed the right knee indwelling drain catheter. Alcohol swab was applied to the drain hole site. Multiple ChloraPrep swabs were then applied over the staple line. A generous supply of 4 x 4 gauze was then applied over the drain hole site along with over the staple line. This was followed by ABD pads and gauze wrap. Finally Godwin wrap were reapplied to the wound. There were no complications. Valente Kramer M.D. DR: Grant JOB#: [id number] CC:
[2019-01-20] MEDS: Enoxaparin 40mg Inj SUBQ SCH (08:53)
[2019-01-20 08:54] VITALS: BP 132/77
[2019-01-20] MEDS: Losartan 50mg tab ORAL SCH (08:54)
[2019-01-20 09:01] LABS: INR 0.9 (0.9-1.1)
--- NOTE | 2019-01-20 10:32 | General Progress Note ---
Assessment/Plan Assessment/Plan: right knee arthroplasty right knee arthritis diabetes PLAN 1. incentive spirometry 2. Lovenox 3. PT evaluation and therapy 4. diabetic management as is 5. Pain management RX given 6. drain out and wound clean dc home follow up with Dr. Schmitt impression, plan, and exam edited and reviewed in detail care discussed with RN Subjective Allergies: Coded Allergies: COCONUT (Verified Allergy, Mild, 12/21/16) RASH RHUBARB (Verified Allergy, Mild, 12/21/16) RASH STRAWBERRY (Verified Allergy, Mild, 12/21/16) RASH Uncoded Allergies: ALL NUTS (Allergy, Severe, THROAT CLOSES UP, 01/19/19) TREE NUTS (Allergy, Severe, 12/21/16) THROAT SWELLS UP EGGPLANT (Allergy, Mild, 12/21/16) RASH Subjective care noted and reviewed no distress Objective Last 24 Hour Vital Signs Date Time Temp Pulse Resp B/P (MAP) Pulse Ox O2 Delivery O2 Flow Rate FiO2 01/20/19 08:54 132/77 01/20/19 08:07 Room Air 01/20/19 08:00 98.2 103 18 132/77 (95) 95 01/20/19 04:00 99.0 86 18 120/65 (83) 95 01/20/19 00:00 99.1 88 17 123/70 (87) 93 01/19/19 21:00 Room Air 01/19/19 20:00 100.6 87 17 120/56 (77) 94 01/19/19 16:00 98.4 82 18 114/57 (76) 94 01/19/19 12:00 98.1 88 20 123/69 (87) Intake and Output 01/19/19 01/20/19 19:00 07:00 Intake Total 800 ml Balance 800 ml Intake Oral 800 ml # Voids 4 Laboratory Tests 01/20/19 06:15: White Blood Count 9.4, Red Blood Count 3.69L, Hemoglobin 11.6L, Hematocrit 33.9L , Mean Corpuscular Volume 92, Mean Corpuscular Hemoglobin 31.4H, Mean Corpuscular Hemoglobin Concent 34.2, Red Cell Distribution Width 11.1L, Platelet Count 226, Mean Platelet Volume 7.0, Neutrophils (%) (Auto) 64.1, Lymphocytes (%) (Auto) 25.0, Monocytes (%) (Auto) 9.0, Eosinophils (%) (Auto) 1.2, Basophils (%) (Auto) 0.7, Prothrombin Time 9.8, Prothromb Time International Ratio 0.9 Height (Feet): 5 Height (Inches): 10.00 Weight (Pounds): 272 Objective WDWN NAD clear breath sounds bilaterally without rhonchi or wheeze [id number] without MRG NABS nontender no HSM no CCE nonfocal Elkin Erazo MD Jan 20, 2019 10:32
[2019-01-20] MEDS ORDERED: ASPIR 8181 MG ORAL (11:06)
--- NOTE | 2019-01-20 11:19 | NUR ---
NURSE NOTES: Spoke to regarding discharge medication. Per : Continue home medications and patient can have Aspirin 81 mg BID instead of Lovenox. Order noted and carried out.
--- NOTE | 2019-01-20 13:00 | NUR ---
NURSE NOTES: discharge pt in stable condition with daughter, all d/c instruction was given. verbalized understanding. follow up appt was made by her, drg on right knee was clean and dry. will f/u with
[2019-01-20] MEDS ORDERED: Tubing IV Secondary IV ONE (13:40)
--- NOTE | 2019-01-20 21:14 | Discharge Summary ---
Discharge Summary Hospital Course Date of Admission Jan 17, 2019 at 07:16 Date of Discharge Jan 20, 2019 at 12:50 Admitting Diagnosis Right knee osteoarthritis Reason for Hospitalization: Elective surgery HPI Kaley Wolff is a 58 year old female who was admitted on Jan 17, 2019 at 07: 16 for Right Knee Osteoarthritis. Patient was admitted for elective surgery Consultations Dr. Erazo -IM/pulmonary Dr. Kramer -pain specialist Procedures s/p 01/17/[address] Awais M.D. Right total knee replacement with Persona Jessica knee. Hospital Course status post surgery course of recovery uneventful initially IV fluids s/p perioperative antibiotics neurovascular status closely monitored, remain stable incision with dressing clean, dry, intact pain management addressed ; pain controlled Remains hemodynamically stable ambulated with PT fall precautions maintained; safe for ambulation DVT prophylaxis provided use of incentive spirometry was encouraged while in the bed tolerated diet , IV fluids discontinued GI prophylaxis provided antiemetics were on board as needed blood pressure was managed with angiotensin receptor gilbert and remained stable blood sugar was managed with metformin, remained stable voided freely bowel regimen instituted patient was stable for discharge discharge instructions provided follow up with surgeon in the office as advised FINAL DIAGNOSES Right knee osteoarthritis Status post right knee arthroplasty Diabetes mellitus Hypertension Obesity GERD Discharge Medications Continued Medications: Aspirin* (Aspir 81*) 81 Mg Tablet. 81 MG ORAL BID, TAB (This prescription has been renewed) Losartan Potassium* (Losartan Potassium*) 50 Mg Tablet 50 MG ORAL DAILY, TAB (This prescription has been renewed) Metformin Hcl* (Metformin Hcl*) 500 Mg Tablet 500 MG ORAL DA, TAB (This prescription has been renewed) Omeprazole (Omeprazole) 40 Mg Capsule.dr 40 MG ORAL DAILY, CAP (This prescription has been renewed) Oxycodone Hcl/Acetaminophen 10-325 Mg Tablet (Percocet 10-325 Mg Tablet*) 1 Each Tablet 1 TAB ORAL Q4H PRN for For Pain, #75 TAB (This prescription has been renewed) Discontinued Medications: Enoxaparin* (Lovenox*) 40 Mg/0.4 Ml Inj 40 MG SUBQ DAILY for 14 Days, #14 Discharge Condition Upon Discharge: stable Discharge Disposition Patient was discharged to Home () Discharge Instructions Discharge Instructions Special Instructions I have been assigned to complete a D/C Summary on this account. I was not involved in the patient management Keren Dickey EAR MUFF ASSEMBLER Jan 20, 2019 21:13
--- NOTE | 2019-01-27 05:30 | Operative Note - Dictated ---
DATE OF OPERATION: 01/17/2019 PREOPERATIVE DIAGNOSIS: Right knee end-stage osteoarthritis. POSTOPERATIVE DIAGNOSIS: Right knee end-stage osteoarthritis.. PROCEDURE: Right total knee replacement with Persona Jessica knee. SURGEON: Demetrius Ernandez M.D. NURSE CARE MANAGER: Unknown. FLIGHT ENGINEER MANAGER: None. PREOPERATIVE NOTE: This is a pleasant lady who has been having excessive pain in her knee associated with failure of conservative treatment, injections, and anti-inflammatories. She has end-stage changes. I explained to her the surgery and risks being infection, bleeding, anesthetic risks, neurovascular damage, DVT, PE, and failure of the operation, the patient agreed. Consents were obtained. OPERATIVE ROOM NOTE: Under the benefit of endotracheal intubation and general anesthetic, a midline incision was made incised through subcutaneous tissue down to the medial retinaculum. I everted the patella. The patella looked good. I denervated around the patella removing osteophytes. We then proceeded this. I drilled down the femur. I sized the femur taking with 3-degree of external rotation and 6-degree valgus cut, we made anterior cuts, posterior cuts, anterior chamfer, and posterior chamfer cuts. Sizing is perfect. We drilled the lug holes. Rotation is perfect. I then took 2 mm roughly the low side of the tibial plateau and made a tibial plateau cut with a 7-degree blocking slope. Knee was in flexion-extension, sized it, locked, and deemed to be perfect. Then, full stability was 10 with extension and flexion, but no mid flexion instability. Knee was stable with no lift-off past 120. Again, we placed in a tibial prothesis Jessica Persona Stubby Stem cement. The femoral prosthesis closed with 10 mm spacer. We then irrigated the wound copiously. EBL was about 800 mL. We closed muscle with #1 Vicryl, subcutaneous tissue with 2-0 Vicryl, and skin with zandra. The patient went to recovery room in stable condition. X-rays looked perfect. There were no complications. Neurovascularly intact. Demetrius Ernandez M.D. DR: ERENDIRA JOB#: [id number] CC:
== END 2019-01-20 12:50 | disposition home or self-care (01) | DRG 470 ==
LOC: MERGE 01-17 07:16 → SDSOVERFLO 01-17 07:16 → 3E 01-17 13:30
PROC: 0SRC0J9 Replacement of Right Knee Joint with Synthetic Substitute, Cemented, Open Approach (ICD-10-PCS; principal; 2019-01-17 10:00)
DX: M17.11 Unilateral primary osteoarthritis, right knee (principal); E66.01 Morbid (severe) obesity due to excess calories; Z68.39 Body mass index [BMI] 39.0-39.9, adult; E11.9 Type 2 diabetes mellitus without complications; I10 Essential (primary) hypertension; K21.9 Gastro-esophageal reflux disease without esophagitis; Z79.84 Long term (current) use of oral hypoglycemic drugs
CPT/HCPCS: 36415; 80048; 82962; 85007; 85025; 85610; 85730; 87081; 94003; 94150; J2405